=== PATIENT | male | born 1970 | race Caucasian/White ===

== ENCOUNTER → 2022-07-18 | Outpatient (CLI) | payer OTHER ==
--- NOTE | 2022-07-21 09:16 | MR ---
EXAMINATION TYPE: MR shoulder LT wo con DATE OF EXAM: 07/18/2022 COMPARISON: Bilateral shoulder x-rays June 24, 2022 HISTORY: Left shoulder pain x 6 mos, bone spurs. TECHNIQUE: Multiplanar, multisequence imaging of the left shoulder is performed without contrast. FINDINGS: Rotator Cuff: Distal supraspinatus and infraspinatus tendons are intact. Rotator cuff muscle bulk is preserved. Acromioclavicular Joint: Mild to moderate narrowing and mild superior capsular hypertrophy. Mild spur ring. Glenohumeral Joint: Small joint effusion. No significant spurring. Labrum: The labrum appears grossly intact given limitation of non-arthrogram study. Biceps Tendon: The long head of biceps is in normal location within bicipital groove. Bone marrow signal: No focal abnormal marrow signal is appreciated. Other: No additional significant abnormality is appreciated. IMPRESSION: Mild to borderline moderate degenerative changes as detailed above. No rotator cuff or la bral tear is seen.
== END | disposition home or self-care (01) ==
LOC: RADMRIMAIN 18:30
PROVIDERS: ATTEND Orthopaedic Surgery
DX: M19.012 Primary osteoarthritis, left shoulder (principal); M25.412 Effusion, left shoulder